=== PATIENT | male | born 1945 | race African-American/Black ===

== ENCOUNTER 2016-04-12 08:05 | Emergency (ER) | payer MEDICARE, OTHER ==
[2016-04-12 08:14] VITALS: TEMP 97.9; BMI 23.6
--- NOTE | 2016-04-12 08:26 | EDPRACDOC ---
- General Information Chief Complaint: Headache Stated Complaint: HEADACHE Time Seen by Provider: 04/12/16 08:18 Information Source: Patient Home Medications: Home Medications Aspirin (Enteric Coated) [Halfprin] 81 mg PO DAILY 03/21/13 Bupropion HCl [Budeprion Sr] 150 mg PO DAILY 03/21/13 Citalopram (anti-depressant) [Celexa] 20 mg PO DAILY PRN 03/21/13 Flunisolide 1 spray KATH BID 03/21/13 Glipizide [Glucotrol] 10 mg PO BIDAC 03/21/13 Lisinopril [Prinivil] 2.5 mg PO DAILY 03/21/13 Loratadine [Claritin] 10 mg PO DAILY 03/21/13 Metoprolol Tartrate 12.5 mg PO DAILY 03/21/13 Pravastatin [Pravachol] 20 mg PO HS 03/21/13 Ranitidine [Zantac] 150 mg PO BID 03/21/13 Multivitamin with Minerals [One Daily] 1 each PO DAILY 03/19/14 Calcium Carbonate/Vitamin D3 [Calcium + Vit D Caplet (600mg/400IU)] 1 tab PO BID 02/21/15 Albuterol Sulfate [Proventil Hfa] 1 - 2 puff INH Q4H PRN #1 hfa.aer.ad 06/20/15 Hydrocodone Bit/Acetaminophen [Hydrocodon-Acetaminophen 5-325] 1 tab PO Q4H PRN #10 tab 01/05/16 Allergies/Adverse Reactions: Allergies Allergy/AdvReac Type Severity Reaction Status Date / Time No Known Allergies Allergy Verified 04/12/16 08:14 - History of Present Illness Onset: 3-4 DAYS HPI: HEADACHE 3-4 DAYS. 1999 BRAIN ANEURYSM. PAIN IS POSTERIOR. STARTED ABOUT 4 DAYS AGO, GRADUAL. YESTERDAY EVENING SYMPTOMS WORSE. SAW PCP, HAS BEEN TAKING TYLENOL. INCREASED BP MEDS BECAUSE BP HAS BEEN HIGH. HAD SOME HEARING LOSS SEVERAL YEARS AGO, [facility] NOT DO [facility]. PT UNSURE IF HE HAS A COIL IN ANEURYSM OR NOT. ED Past Medical History - History Reviewed Yes Nurses notes reviewed and agree except as marked - Patient Medical History Neurological History: Reports: Cerebrovascular Accident Cardiac History: Reports: Hypertension, Heart Attack, Hypercholesterolemia Respiratory History: Reports: COPD GI/ History: Reports: Gastroesophageal Reflux Psychological History: Denies: Depression Systemic History: Reports: Cancer (Prostate), Diabetes Surgical History: Reports: Other (LUMBAR FUSION) - Social Medical History Smoking Status: Never smoker EDM Review of Systems - Review of Systems ROS Negative Except as Marked: Yes All systems reviewed and were negative except as marked - Physical Exam Constitutional: Alert (Awake), No apparent distress Oriented to: Time, Person, Place Last recorded Vital Signs: Last Vital Signs Temp 97.9 F 04/12/16 08:10 Pulse 76 04/12/16 08:10 Resp 18 04/12/16 08:10 BP 166/74 04/12/16 08:10 Pulse Ox 95 04/12/16 08:10 Oxygen Pulse Oxygen Saturation 95 O2 Device Room Air Oxygen Flow Rate Fraction of Inspired Oxygen ( FIO2) - HEENT Head: Normal ( normocephalic) Eye Exam: Normal (PERRL, EOMI, Sclera white) Oropharynx: Normal (Pharynx:Moist without exudate,Gums-no swelling) Nose: No Symptoms Reported (septum midline) Neck: Normal (FROM, trachea at midline) - Respiratory/Cardiovascular Respiratory: Normal - CTA (BBS clear to auscultation without adventitious sounds ) Cardiovascular: Normal (RRR without murmur, gallop or rub) - GI Auscultation: Normal (NABS) Palpation: Normal (Soft,No rebound or guarding, non distended) Tenderness: Non tender Maxwell's Sign: Negative - Musculoskeletal Back: Normal (Non-Tender) Extremities: Normal (Normal tone, Pulses 2+ No cyanosis or edema, FROM) - Integumentary Skin: Normal, Warm, Dry Lymphatics: Normal (no adenopathy) - Neurologic Memory Impaired: Normal Motor Function: Normal (Normal tone, Pulses 2+ No cyanosis or edema, FROM) Cranial Nerve: Normal (CN II-X11 intact sensation, strength 5/5) Cerebellar: Normal Mood Description: Normal Perception: Normal Decision Time to Discharge: 09:30 - Departure Yes I personally saw and evaluated the patient. Disposition: Home Condition: Stable Final Diagnosis: Headache Instructions: Acute Headache (ED) Education/Counseling Given To: Patient Education/Counseling Given Regarding: Diagnosis Referrals: None,No Provider [Primary Care Provider] - One Week
[2016-04-12] MEDS ORDERED: METOCLOPRAMIDE 10 MG/2 ML VIAL IM ONE (08:31)
[2016-04-12] MEDS ORDERED: DEXAMETHASONE PF 10 MG/1 ML VIAL IM ONE (08:31)
[2016-04-12] MEDS ORDERED: DIPHENHYDRAMINE 50 MG/ML VIAL IM ONE (08:31)
--- NOTE | 2016-04-12 09:10 | DIRPT ---
CLINICAL DATA: Occipital headache. History of aneurysm EXAM: CT HEAD WITHOUT CONTRAST TECHNIQUE: Contiguous axial images were obtained from the base of the skull through the vertex without intravenous contrast. COMPARISON: 08/20/2008 FINDINGS: Skull and Sinuses:Negative for fracture or destructive process. The visualized mastoids, middle ears, and imaged paranasal sinuses are clear. Visualized orbits: Negative. Brain: No evidence of acute infarction, hemorrhage, hydrocephalus, or mass lesion/mass effect. Remote paramedian right cerebellar and high anterior right frontal lobe infarcts. Generalized cerebral volume loss which is mild for age. Incidental cavum velum interpositum cyst. IMPRESSION: 1. No acute finding or change from 2008. 2. Remote right cerebellar and frontal infarcts. Electronically Signed By: Norbert Iverson M.D. On: 04/12/2016 09:07
[2016-04-12 09:44] VITALS: BP 138/74; PULSE 68
== END 2016-04-12 09:24 | disposition home or self-care (01) ==
LOC: ED 08:05
DX: R51 Headache (principal)
CPT/HCPCS: 70450; 96372; 99283; J1100; J1200; J2765